=== PATIENT | female | born 1995 | race Hispanic/Latino ===

== ENCOUNTER 2019-06-20 14:32 | Emergency (ER) | payer OTHER ==
[2019-06-20 15:16] LABS: BASOPHILS % (AUTO) 0.4 % (0.0-5.0); EOSINOPHILS % (AUTO) 0.2 % (0.0-8.0); HEMATOCRIT 43.6 % (36-48); LYMPHOCYTES % (AUTO) 9.4 % (21.0-51.0); MEAN CORPUSCULAR HEMOGLOBIN 29.2 pg (27.0-33.0); MEAN CORPUSCULAR HGB CONC 32.8 g/dL (32.0-36.0); MEAN CORPUSCULAR VOLUME 89.2 fL (79-99); MONOCYTES % (AUTO) 14.1 % (3.0-13.0); NEUTROPHILS % (AUTO) 75.7 % (40.0-77.0); PLATELET COUNT (AUTO) 333 K/uL (130-400); RED BLOOD CELL COUNT(AUTO) 4.89 MIL/uL (4.00-5.50); RED CELL DISTRIBUTION WIDTH 12.6 % (11.0-15.5); WHITE BLOOD COUNT (AUTO) 4.9 K/uL (4.8-10.8)
[2019-06-20] MEDS ORDERED: ACETAMINOPHEN EXTRA STRENGTH 500 MG TABLET ONE (15:21)
[2019-06-20] MEDS ORDERED: LEVOFLOXACIN 500 MG/D5W 100 ML 100 ML ONE (15:22)
[2019-06-20] MEDS ORDERED: SODIUM CHLORIDE 0.9% 1000ML 1,000 ML IV ONE (15:22)
[2019-06-20 15:27] LABS: CREATININE 0.8 mg/dL (0.5-1.5); INR 1.1 (0.85-1.15); PARTIAL THROMBOPLASTIN TIME 27.5 SEC (26.3-35.5); POTASSIUM 3.4 mmol/L (3.5-5.1); PROTHROMBIN TIME 11.5 SEC (9.6-11.6)
[2019-06-20 15:29] LABS: ALBUMIN 3.8 g/dL (3.5-5.0); BILIRUBIN,TOTAL 0.2 mg/dL (0.2-1.0); TOTAL PROTEIN, SERUM 7.5 g/dL (6.0-8.3)
[2019-06-20] MEDS ORDERED: ONDANSETRON HCL 4 MG/2 ML VIAL ONE ×2 (15:42→17:00)
[2019-06-20 15:43] LABS: APPEARANCE,URINE Cloudy (CLEAR); BILIRUBIN,URINE Negative (NEGATIVE); COLOR,URINE Yellow (YELLOW); GLUCOSE, URINE (UA) Negative (NEGATIVE); KETONES,URINE 15 mg/dL (NEGATIVE); LEUKOCYTE ESTERASE ,URINE Negative (NEGATIVE); NITRATE,URINE Negative (NEGATIVE); OCCULT BLOOD,URINE Negative (NEGATIVE); PH,URINE 5.5 (5.0-8.0); PROTEIN,URINE POS 1+ mg/dL (NEGATIVE)
[2019-06-20 15:47] LABS: HCG,QUAL RESULT NEGATIVE (NEGATIVE)
[2019-06-20 15:57] LABS: CREATINE KINASE, TOTAL 57 U/L (21-232); MYOGLOBIN 30 ng/mL (10-92); TROPONIN I < 0.04 ng/mL (0.00-0.06)
[2019-06-20 16:04] LABS: AMORPHOUS SEDIMENT,UR Few /LPF (None Seen); BACTERIA,URINE Moderate /HPF (None Seen); MUCUS,URINE Rare LPF (None Seen); RBC,URINE 0-1 /HPF (0-1); SQUAMOUS EPITHELIAL CELL,UR Few /HPF (0-2); WBC,URINE 0-1 /HPF (0-1)
[2019-06-20] MEDS ORDERED: BENZONATATE 100 MG CAPSULE PO ONE (17:00)
[2019-06-20] MEDS ORDERED: KETOROLAC TROMETHAMINE 30MG/ML ONE (17:00)
[2019-06-20] MEDS ORDERED: IPRATROPIUM/ALBUTEROL SULFATE 3 ML SOLUTION IH ONE (17:57)
[2019-06-20] MEDS ORDERED: OSELTAMIVIR PHOSPHATE 75 MG CAP ONE (18:56)
== END 2019-06-20 20:16 | disposition home or self-care (01) ==
LOC: EDH 14:32
DX: J10.2 Influenza due to other identified influenza virus with gastrointestinal manifestations (principal); E86.0 Dehydration
CPT/HCPCS: 36415; 71045; 80053; 81001; 81025; 82550; 83605; 83690; 83874; 84145; 84484; 85025; 85610; 85730; 87040 ×2; 87088; 87804 ×2; 93005; 94640; 96365; 96366; 96368; 96375; 96376; 99285; J1885; J1956; J2405 ×2; J7030

== ENCOUNTER 2020-08-08 03:05 | Emergency (ER) | payer SELFPAY | END 2020-08-08 04:43 | disposition home or self-care (01) | LOC: EDH 03:05 | DX: S01.01XA Laceration without foreign body of scalp, initial encounter (principal); Z87.891 Personal history of nicotine dependence; X58.XXXA Exposure to other specified factors, initial encounter; Y93.89 Activity, other specified; Y92.098 Other place in other non-institutional residence as the place of occurrence of the external cause; Y99.8 Other external cause status ==